=== PATIENT | female | born 1980 | race Caucasian/White ===

== ENCOUNTER 2018-02-18 14:34 | Inpatient (IN) | payer BC ==
[2018-02-18 15:09] VITALS: BMI 41.1
[2018-02-18] MEDS ORDERED: Lactated Ringer's 1,000 ML IV ONE (15:10)
--- NOTE | 2018-02-18 15:35 | OBADHP ---
Datetime: 02/18/2018 15:27 Admit Comment, IP Provider: 37 y/o @ 38 + wks GA c/o vagianl spotting x 1 day bright red adn decreased movents. pt reprots ctx florentino that comes and goes, irregular varies intensty adn sevie ryt. pt ny lof. pt with gdma and rpeorts new onset itchign in hands afor a few days. OB: x 2 pretemr 36 weeks largest baby 7.b9 ounces, SAB x 2 [employer]: denies PPMH: GDMA PSH: denes FHX: non contbityor MEDS: Pnenatlaiv timain NKDA SHX: negaitve etoh/tobacc/durgs 37y/o @ 38+ wks IOL for GDMA admit to L+D fingerstick npo, ivf admissin labs ocnt toco and mef cytotect analgeis Pelvic Type - PN: Adequate Extremities - PN: Normal Abdomen - PN: Normal Back - PN: Normal Breast - PN: Normal Lungs - PN: Normal Heart - PN: Normal Thyroid - PN: Normal Neurologic - PN: Normal HEENT - PN: Normal General - PN: Normal Presentation-Admit: Vertex FHR - Baseline A Provider: 150 Membranes, Provider: Intact Gestation - Est Wks by US: 38.3 IP Hx Assessment: The History has been Reviewed and is Current Vital Signs Provider: Reviewed; Within Normal Limits IP Chief Complaint: Other NICHD Variability Prov Fetus A: Moderate 6-25bpm FHR Category Provider Fetus A: Category I NICHD Decel Fetus A IP Provider: None Dilatation, Provider: 1 Effacement, Provider: 30 Station, Provider: -3 Genitourinary Exam: Normal DTRs - PN: Normal IP Adm Impression: Term, intrauterine IP Admit Plan: Admit to unit
[2018-02-18 16:52] LABS: BASO % 0.1 % (0.0-2.0); EOS # 0.1 K/uL (0.0-0.7); HEMOGLOBIN 11.8 g/dL (11.0-16.0); LYMPH # 2.1 K/uL (1.0-4.3); LYMPH % 26.1 % (20.0-40.0); MEAN CORPUSCULAR HEMOGLOBIN 29.7 pg (27.0-31.0); MEAN CORPUSCULAR HGB CONC 34.6 g/dL (33.0-37.0); MEAN PLATELET VOLUME 6.9 fL (7.2-11.7); MONO # 0.7 K/uL (0.0-0.8); MONO % 8.7 % (0.0-10.0); NEUT # 5.2 K/uL (1.8-7.0); NEUT % 64.1 % (50.0-75.0); NRBC % 0.1 % (0.0-2.0); RBC 3.96 Mil/uL (3.80-5.20); RED CELL DISTRIBUTION WIDTH 15.1 % (11.5-14.5); WHITE BLOOD COUNT 8.1 K/uL (4.8-10.8)
[2018-02-18 16:54] LABS: SQUAMOUS EPITHIAL 12 /hpf (0-5); URINE BILIRUBIN NEGATIVE (NEGATIVE); URINE BLOOD NEGATIVE (NEGATIVE); URINE CLARITY Hazy (Clear); URINE COLOR Amber (YELLOW); URINE GLUCOSE (UA) NORMAL (Normal); URINE LEUKOCYTE ESTERASE TRACE Leu/uL (Negative); URINE PROTEIN 1+ mg/dL (NEGATIVE); URINE UROBILINOGEN NORMAL mg/dL (0.2-1.0)
[2018-02-18 17:06] LABS: ALB/GLOB RATIO 1.2 (1.0-2.1); ALBUMIN 3.4 g/dL (3.5-5.0); ALT/SGPT 22 U/L (9-52); AST/SGOT 22 U/L (14-36); BLOOD UREA NITROGEN 8 mg/dL (7-17); CALCIUM 9.2 mg/dl (8.6-10.4); GFR AFRICAN-AMERICAN > 60; GFR NON-AFRICAN AMERICAN > 60
--- NOTE | 2018-02-18 18:03 | OBPN ---
Datetime: 02/18/2018 17:59 IP Progress Impression: Normal progression of labor Membranes, Provider: Ruptured Amniotic Fluid Color, Provider: Clear Contraction Comments Provider: q 5m in FHR - Baseline A Provider: 160 Gestation - Est Wks by US: 38.3 Presentation-Admit: Vertex IP Progress Note Comment: pt seen and examiend , variable occaoisn late decerlation pt reprostiont, elft lateral decubuit postion, oxygen geinve EFM :irmpoved Pt reeivated progressed form 1-->3cm ARM, clear, scant Pt preorts contraciton pain increasng and requesign peidurla a/p @ 38.3 wks GA in labor -cont oxygen, left lataer -Anesthies consult -cont ivh -cnt toco and emf Vital Signs Provider: Reviewed; Within Normal Limits NICHD Variability Prov Fetus A: Moderate 6-25bpm Dilatation, Provider: 3 Effacement, Provider: 60 Station, Provider: -2 NICHD Decel Fetus A IP Provider: Variable Datetime: 02/18/2018 15:27 FHR Category Provider Fetus A: Category I
[2018-02-18] MEDS ORDERED: Fentanyl/Bupivacaine HCl 250 ML EPI ONE (18:17)
[2018-02-18] MEDS ORDERED: Oxytocin 30 UNIT 30 UNITS/500 ML BAG IV SCH (19:00)
[2018-02-18] MEDS ORDERED: Oxytocin 30 UNIT 30 UNITS/500 ML BAG IV ONE (19:27)
[2018-02-18] MEDS ORDERED: Oxytocin 20 units in LR 0 ML IV ONE (19:40)
[2018-02-18] MEDS ORDERED: Lidocaine 2% MPF (5 ml) Inj ONE (19:40)
[2018-02-18] MEDS ORDERED: Oxycodone/Acetaminophen 5/325 mg Tab PO PRN ×2 (23:31)
[2018-02-18] MEDS ORDERED: Benzocaine/Menthol 20%-0.5% Topical Spray (60 ml) TOP PRN (23:31)
--- NOTE | 2018-02-18 23:33 | OBDS ---
MATERNAL INFORMATION Provider Comments: pt was fully dilated and pushing. atruamtic, spontenaoud deliveyr of head, no nuc deep cord noted. atramatic, spontanoeus delivery of anterior followed by posteiro shoudler folleod by delivery of the body. Umbilcal cord was clamped adn cut. baby handed to awaiting RN. Cord blood and cord gases collected and sent x 2. Spontanenosu delivery of intact placenta with membranes. First de gree perineal laceration repaired with 2-0 chormic. Fundus firm, good hemostaiss, no compications Live male apgsrs 9,9 weight of 6lb 10 ounce ebl 200ml LABOR SUMMARY EDC: 03/01/2018 00:00 No. Babies in Womb: 1 Attempted: No Labor Anesthesia: Epidural LABOR INFORMATION Reason for Induction: Other Reason for Induction Other: Gestational Diabetes Cervical Ripening Agents: Cytotec @ (Annotations: 25mcg inserted vaginally by Dr. Jay Carroll. 25mcg given by mouth.) Other Ripening Agents: N/A Oxytocin: N/A Group B Beta Strep: Unknown (Annotations: Dr Carroll ordered not to give antibiotic) Steroids Given: None Reason Steroids Not Administered: Not Applicable Other Reason Not Administered: N/A MEMBRANES Membranes Rupture Method: Artificial Rupture of Membranes: 02/18/2018 17:58 Amniotic Fluid Color: Clear Amniotic Fluid Amount: Small Amniotic Fluid Odor: Normal INFORMATION BABY A Gestational Age at Delivery: 38.3 Gestational Status: Term IDENTIFICATION/MEDS BABY A ID Band Number: [id number] Sensor Number: [id number]
[2018-02-19 07:37] LABS: BASO % 0.5 % (0.0-2.0); EOS # 0.1 K/uL (0.0-0.7); EOS % 0.8 % (0.0-4.0); HEMOGLOBIN 11.3 g/dL (11.0-16.0); LYMPH # 2.1 K/uL (1.0-4.3); LYMPH % 21.7 % (20.0-40.0); MEAN CELL VOLUME 86.8 fL (81.0-99.0); MEAN CORPUSCULAR HEMOGLOBIN 29.7 pg (27.0-31.0); MEAN CORPUSCULAR HGB CONC 34.3 g/dL (33.0-37.0); MEAN PLATELET VOLUME 7.2 fL (7.2-11.7); MONO # 0.9 K/uL (0.0-0.8); MONO % 8.9 % (0.0-10.0); NEUT # 6.6 K/uL (1.8-7.0); NEUT % 68.1 % (50.0-75.0); NRBC % 0.1 % (0.0-2.0); RBC 3.81 Mil/uL (3.80-5.20); RED CELL DISTRIBUTION WIDTH 14.9 % (11.5-14.5); WHITE BLOOD COUNT 9.7 K/uL (4.8-10.8)
[2018-02-19] MEDS: Multiple Vitamins Tab PO SCH (10:55)
[2018-02-20] MEDS: Multiple Vitamins Tab PO SCH (09:03)
--- NOTE | 2018-02-20 14:16 | OBPPN ---
Datetime: 02/20/2018 13:58 PP Pain Prov: Within normal limits PP Nausea Prov: Denies PP Flatus Prov: Yes PP BM Prov: Yes PP Breasts Prov: Normal PP Heart Prov: Normal PP Lungs Prov: Normal PP Abdomen/Uterus Prov: Normal PP Lochia Prov: Normal PP Vulva/Perineum Prov: Normal PP CVA Tenderness Prov: Normal PP Extremities Prov: Normal PP C/S Incision Prov: Not Applicable PP Progress Prov: Normal PP Comments Phys Exam Prov: Abdomen: Obese. Soft. non distended. Fundus firm, mobile, non tender, 1 FB below umbilicus. Mild lochia rubra All other systems reviewed and are negative. PP Impression Prov: Normal progression PP Plan Prov: Continue present management PP Progress Note Prov: Patient seen and evaluated at approximately 0810 hours: received in room 451. ; deciding to supplement with bottle ... "I don't think he is getting enough". Deneis dizziness, palpitations, lightheadedness; nausea or vomiting. Ambulating and voiding without difficu lty. P.E.: as above. Obese in NAD. Awake, alert, oriented to time, person and place. Pleasant and coope rative - PPD#1 H/H 11.3/33.1. Rh(+) Assessment: PPD# 1 1/2, 37 y.o. P1223, S/P at term. Afebrile, vital signs stable. As above. Patient requested circumcision for ; informed consent obtained after discussion of possible c omplications. Consent signed, dated, witnessed and placed in chart. Clinically stable. Plan: 1) Continue routine post care 2) Anticipate discharge home 02/21/18 Vital Signs Provider PP: Reviewed; Within Normal Limits
[2018-02-21 08:57] VITALS: BP 123/81; PULSE 93; RESP 18; TEMP 98.5; O2SAT 98
--- NOTE | 2018-02-21 09:02 | OBDCSUM ---
Datetime: 02/21/2018 08:57 Discharged to, Provider: Home Follow up at, Provider: 6 weeks Disch Instr Activity: Normal activity; May be up to bathroom; May be up for meals; May Shower Disch Instr Diet: Regular Discharge Instructions, Provider: Routine instructions given Discharge Diagnosis, Provider: Term Delivered Discharge Time: 02/21/2018 08:57 Disch Referrals: None Contraception discussed, Prov: Yes Disch Activity Restrictions: No driving Discharge Comment, Provider: PT doing well, Pain 4/7, tolerating PO diet. Denies nausea and vomitng. PE: Fundus firm above the umbilicus. EXT: no edema bilaterally 37 S/P PPD #2 1) VSS: afebrile. 2) . 3) Discharge home.
[2018-02-21] MEDS: Multiple Vitamins Tab PO SCH (10:38)
== END 2018-02-21 15:15 | disposition home or self-care (01) | DRG 775 ==
LOC: C.EROB 14:34 → C.4D 15:10 → C.4M 02-19 02:50
PROVIDERS: ADMIT Obstetrics & Gynecology; ATTEND Obstetrics & Gynecology
PROC: 0HQ9XZZ Repair Perineum Skin, External Approach (ICD-10-PCS; principal; 2018-02-18)
PROC: 10E0XZZ Delivery of Products of Conception, External Approach (ICD-10-PCS; 2018-02-18)
DX: O24.429 Gestational diabetes mellitus in childbirth, unspecified control (principal); Z68.41 Body mass index [BMI] 40.0-44.9, adult; O70.0 First degree perineal laceration during delivery; O99.214 Obesity complicating childbirth; E66.9 Obesity, unspecified; Z3A.38 38 weeks gestation of pregnancy; Z37.0 Single live birth